=== PATIENT | male | born 1945 | race Caucasian/White ===

== ENCOUNTER 2020-03-26 16:55 | Inpatient (IN) | payer OTHER ==
[~2020-03-26] VITALS: Ht 188 cm; Wt 80.7 kg
[2020-03-26 18:19] LABS: ABSOLUTE NEUTROPHILS 8.5 thou/uL (1.4-8.2); BASOPHILS 0.8 % (0.0-2.0); EOSINOPHILS 0.4 % (0.0-3.0); HEMATOCRIT 32.5 % (42.0-52.0); LYMPHOCYTES 5.3 % (24.0-44.0); MCV 79.4 fL (80.0-100.0); MONOCYTES 5.4 % (1.0-8.0); PLATELET COUNT 227 thou/uL (150-400); POLYS 88.1 % (36.0-66.0); RBC 4.09 mil/uL (4.50-6.00); RDW 14.3 % (10.5-14.5); WBC 9.6 thou/uL (4.0-11.0)
[2020-03-26 18:26] LABS: ANION GAP 9 mmol/L (7-16); BUN 33 mg/dL (7-18); CALCIUM 8.5 mg/dL (8.5-10.1); CHLORIDE 96 mmol/L (98-107); CO2 24 mmol/L (21-32); CREATININE 1.4 mg/dL (0.7-1.3); GLUCOSE 153 mg/dL (74-106); POTASSIUM 3.7 mmol/L (3.5-5.1); SODIUM 129 mmol/L (136-145)
[2020-03-26 18:37] LABS: BE(vivo) -0.9 mmol/L (-2 to +3); HCO3 21.1 mmol/L (22.0-26.0); PO2 87.7 mmHg (80.0-100.0); sO2 97.5 % (92.0-98.0)
[2020-03-26 18:37] LABS: ALBUMIN 2.8 g/dL (3.4-5.0); SGOT 21 U/L (15-37); SGPT 11 U/L (16-63); TOTAL BILIRUBIN 0.7 mg/dL (0.2-1.0); TOTAL PROTEIN 6.4 g/dL (6.4-8.2); TROPONIN-I <0.06 ng/mL (<0.06)
[2020-03-27 05:51] LABS: HEMATOCRIT 34.3 % (42.0-52.0); HEMOGLOBIN 11.7 gm/dL (14.0-18.0); MCH 27.2 pg (26.0-34.0); MCV 80.1 fL (80.0-100.0); RBC 4.29 mil/uL (4.50-6.00); RDW 14.5 % (10.5-14.5); WBC 7.7 thou/uL (4.0-11.0)
[2020-03-27 06:18] LABS: CALCIUM 9.1 mg/dL (8.5-10.1); CREATININE 1.5 mg/dL (0.7-1.3)
[2020-03-27 06:23] LABS: POTASSIUM 4.8 mmol/L (3.5-5.1)
--- NOTE | 2020-03-27 07:45 | NUR ---
PT'S CALLS AND STATES THAT SHE WANTS TO COME GET HIM SINCE HE IS STILL IN THE ER AND WANTS TO KNOW IF HE WILL GET FED AND GET MEDS. PT'S UPDATED TO PLAN OF CARE AT THIS TIME. UPDATED THAT ALL MEDS THAT THE HOSPITALIST ORDERS WILL BE ADMIN IN THE ER AND THAT BREAKFAST USUALLY ARRIVES BETWEEN 0730 AND 0830. STATES THAT THE PT CALLED HER THIS MORNING UPSET AND SHE WANTS TO TAKE HIM TO ANOTHER HOSPITAL, ASSURED THAT WE ARE TAKING CARE OF HIM AND THAT ALL OTHER HOSPITALS MAY BE IN THE SAME SITUATION. PT'S PRIMARY NURSE UPDATED AT THIS TIME.
[2020-03-27] MEDS ORDERED: METFORMIN HCL500 M3 PO (08:28)
[2020-03-27] MEDS ORDERED: CARVEDILOL12.5 MG PO (08:29)
[2020-03-27] MEDS ORDERED: PRAVASTATIN SOD40 MG PO (08:29)
[2020-03-27] MEDS ORDERED: CARBIDOPA-LEVO1 EAC9 PO (08:29)
[2020-03-27] MEDS ORDERED: GLIMEPIRIDE4 MG PO (08:30)
[2020-03-27] MEDS ORDERED: HYDROCHLOROTHIA25 M2 PO (08:30)
[2020-03-27] MEDS ORDERED: ASA81BEC PO (08:31)
--- NOTE | 2020-03-27 14:18 | NUR ---
74-year-old male presenting to the ER with shortness of breath. States that he was diagnosed Covid POSITIVE on 03-19-20 but symptoms started on the . Patient reports doing well with mild cough, myalgias and fever. However became increasing SOA stating he can not walk more than 5- feet without feeling short of breath. He had been doing fairly well with only cough myalgias fever in the beginning however over the last few days he has been increasingly more short of breath. The patient has a history of previous stent placement for CAD. The patient was started on Zoysn and Decadron in the ED. Per ED record on 03-27-20 patient is on 3 liters per NC at 97%. Patient seen by ID and diagnosed with COVID-19 infection complicated by pneumonitis/Diabetes mellitus/hypertension. Patient to continue therapy against coronavirus as well as empiric therapy possible secondary bacterial complicating infection; as well as to continue supportive care with oxygen therapy as required. The patient has been assessed as A&O x4. The patient's spouse Pretty has called the ED and return number could not be verified. The original face sheet shows the patient's son Dave as next of kin and green party of notification however both numbers are not working. In looking through the record was able to find the spouse's number as [phone]. The patient's cell is [phone]. Introduced the role of CM and the intention of the spouse is for patient to be able to return home possibly with Home Health. The patient has not used DME, SNF or Home Health in the past. The spouse states she too tested positive on the and has been cleared to return to her employer of [employer] in [place] but has taken time off while her is hospitalized. The spouse states that patient was diagnosed with Parkinson's 4 years ago and is on 4 times a day Levodopa as well as Metformin BID. Notified attending and ED nurse. CM will follow for discharge needs.
[2020-03-27 19:12] VITALS: BP 144/65
[2020-03-27 19:33] VITALS: BP 131/57
[2020-03-27 20:16] VITALS: BP 145/68
[2020-03-27 21:00] VITALS: BP 145/68
[2020-03-27 23:30] VITALS: BP 133/88
[2020-03-28 04:23] VITALS: BP 138/75
[2020-03-28 06:26] LABS: ALBUMIN 2.5 g/dL (3.4-5.0); CALCIUM 8.2 mg/dL (8.5-10.1); CREATININE 1.3 mg/dL (0.7-1.3); DIRECT BILIRUBIN 0.1 mg/dL (<0.1-0.2); PHOSPHORUS 3.5 mg/dL (2.5-4.9); TOTAL BILIRUBIN 0.4 mg/dL (0.2-1.0); TOTAL PROTEIN 5.3 g/dL (6.4-8.2)
[2020-03-28 06:28] LABS: POTASSIUM 3.7 mmol/L (3.5-5.1)
--- NOTE | 2020-03-28 07:17 | EKG ---
[address] [place] [address] ELECTROCARDIOGRAM REPORT Name: MARITA DAVILA Room #: 355- ADM IN M.R.#: [id number] Admission: 03/26/20 Attend Phys: Goldy Walker MD Discharge: Date of : 41 Report #: [id number] [facility] ED Test Date: 2020-03-26 Test Time: 18:33:46 Pat Name: MARITA DAVILA Department: Room: [facility] Gender: M Speed Belt Sander Tender: RAMANDEEP : 1945 Requested By: Abbe Fong Order Number: [id number] MD: Kenneth Hendrickson Measurements Intervals [place] Rate: 88 P: [place]: QRS: 3 QRSD: 77 T: 8 QT: 342 QTc: 414 Interpretive Statements NSR Minimal ST depression, anterolateral leads Compared to ECG 07/17/2006 10:30:56 ST (T wave) deviation now present Sinus rhythm no longer present Poor R-wave progression no longer present Electronically Signed On 03-28-2020 7:17:35 CRATE ICER by Kenneth Hendrickson [email or web address] <ELECTRONICALLY SIGNED> By: Kenneth Hendrickson MD, [facility] 03/28/20 0717 32 32 Kenneth Hendrickson MD, [facility] /EPI
--- NOTE | 2020-03-28 08:00 | NUR ---
Arrived from ER around 1999. Placed on enhanced precaution , afebrile. Denies any pain. Maintaining O2 sat in the upper 90's on 2l/NC. Verbalized being short of breath with exertion. Up ad daphne in room with steady gait. Noted left hand tremors due to Parkinsons. Requested sleep med , RACKET STRINGER notified and order for melatonin obtained. Pt. stated he has not slept well in the last 3-4 days. After sleep med he said he slept some for few hours.
[2020-03-28 11:16] VITALS: BP 128/68
--- NOTE | 2020-03-28 11:29 | HC ---
[facility] [place] [address] CONSULTATION Name: MARITA DAVILA Room #: 355-P ADM IN M.R.#: [id number] Admission: 03/26/20 Attend Phys: Goldy Walker MD Discharge: Date of : 41 Report #: [id number] THIS REPORT FOR: cc: PIERO - Chelita family physician/PCP PIERO - Chelita family physician/PCP Cj eD Leon MD ~ DATE OF SERVICE: 03/27/2020 INFECTIOUS DISEASE CONSULTATION ATTENDING PHYSICIAN: Dr. Walker. REASON FOR EVALUATION: COVID-19 infection, complicated by pneumonitis. HISTORY OF SUBJECTIVE: Chart reviewed, the patient examined. This is a 74-year-old with history of diabetes mellitus, hypertension, who had loss of sense of taste and smell roughly 8-9 days ago. He was checked and was found to be COVID positive. Over the course of last 48-72 hours, noted some increasing dyspnea and associated cough. He did have some loose stools with diarrhea as well. The former progressed and became short of breath with minimal activity. It is unclear if he had significant fevers. He did admit to chills. He denied any anorexia. Due to the above, he did present himself to the Emergency Room. Chest x-ray noted diffuse bilateral interstitial airspace opacities. Lactic acid was in normal range at 1.8. He was hypoxemic with pO2 of 87.7 on 2 liters. Electrolytes: Sodium 129, his creatinine was 1.4. Blood cultures collected at the time of admission are sterile thus far. He was empirically started on therapy with Zosyn, remdesivir. He is generally lucid at this point. ALLERGIES: ASPIRIN. CURRENT MEDICATIONS: Include heparin, ascorbic acid, pantoprazole, zinc, Zosyn, methylprednisolone, p.r.n. analgesics, remdesivir. PAST MEDICAL HISTORY: Includes diabetes mellitus type 2, hypertension, coronary artery disease with stenting, previous lumbar discectomy, appendectomy, cholecystectomy. SOCIAL HISTORY: No ethanol or illicit drug use. Former smoker. FAMILY HISTORY: Noncontributory. REVIEW OF SYSTEMS: Otherwise, unremarkable. PHYSICAL EXAMINATION: GENERAL: Appears somewhat chronically ill and undernourished. He is pleasant, [facility] [address] [place] [address] CONSULTATION Name: MARITA DAVILA Room #: 355-P [facility].#: [id number] Admission: 03/26/20 Attend Phys: Goldy Walker MD Discharge: Date of : 41 Report #: [id number] in xvma-cb-sddmocoy distress. He is afebrile. VITAL SIGNS: Pulse 74, respirations 18, blood pressure 137/66. SKIN: Warm, dry, no rashes. HEENT: Normocephalic. Extraocular muscles intact. Nasal cannula in place. NECK: Supple. LUNGS: Bilateral scattered crackles at the bases. HEART: Regular, soft systolic murmur. ABDOMEN: Soft, nontender, nondistended. EXTREMITIES: No cyanosis. GENITOURINARY AND RECTAL: Deferred. LABORATORY DATA: Electrolytes: Sodium 134, potassium 4.8, chloride 98, bicarbonate is 24, anion gap of 12, BUN and creatinine 30 and 1.5, glucose is 399. Estimated GFR of 46. CBC: White count of 7.7, H and H of 11.7 and 34.3, platelets of 249, sed rate of 61. Procalcitonin is 0.17. Liver function tests are otherwise unremarkable. Albumin of 2.8, total protein of 6.4. ASSESSMENT: 1. COVID-19 infection, complicated by pneumonitis. 2. Diabetes mellitus. 3. Hypertension. PLAN: We will continue current therapy. Add ivermectin, additional vitamin supplementation. Continue supportive care with oxygen therapy as required. He remains fairly tenuous at this point. Continue to monitor. Would not be surprised if he gets worse before he gets better. <ELECTRONICALLY SIGNED> By: Cj De Leon MD 03/28/20 1129 1138 1306 Cj De Leon MD /nt
--- NOTE | 2020-03-28 14:30 | NUR ---
ALERT AND ORIENTED X4, DENIES ANY PAIN, NAUSEA AND VOMITTING. ON 2L OF OXYGEN, SOB WITH EXERTION. USES THE URINAL. UP WITH ONE ASSIST. DENIES ANY NEEDS. USES CALL LIGHT APPROPRIATELY. WILL CONTINUE TO MONITOR.
[2020-03-28 15:40] VITALS: BP 141/72
[2020-03-28 19:32] VITALS: BP 124/62
--- NOTE | 2020-03-29 00:20 | NUR ---
PT ALERT AND ORIENTED X4. VSS AFEBRILE. NO C/O PAIN. NO S/S RESP DISTRESS PRESENTLY. UNLABORED ON 2LNC. SLEEPING. BED DOWN. CALL LIGHT IN REACH. WILL CONTINUE TO MONITOR PT FOR CHANGES.
[2020-03-29 03:45] VITALS: BP 143/80
[2020-03-29 06:08] LABS: ALBUMIN 2.5 g/dL (3.4-5.0); ANION GAP 11 mmol/L (7-16); BUN 30 mg/dL (7-18); CHLORIDE 107 mmol/L (98-107); CO2 23 mmol/L (21-32); CREATININE 1.2 mg/dL (0.7-1.3); DIRECT BILIRUBIN < 0.1 mg/dL (<0.1-0.2); GLUCOSE 262 mg/dL (74-106); PHOSPHORUS 3.1 mg/dL (2.5-4.9); POTASSIUM 3.8 mmol/L (3.5-5.1); SGOT 20 U/L (15-37); SGPT 33 U/L (30-65); SODIUM 141 mmol/L (136-145); TOTAL BILIRUBIN 0.3 mg/dL (0.2-1.0); TOTAL PROTEIN 5.4 g/dL (6.4-8.2)
--- NOTE | 2020-03-29 06:19 | NUR ---
PT RESTING QUIELTLY SLEEPING. NO S/S DISTRESS. PROGRSSING TOWARDS D/C GOALS.
[2020-03-29 08:03] VITALS: BP 159/106
--- NOTE | 2020-03-29 10:49 | NUR ---
ASSESSMENT AND VITALS SIGNS COMPLETED. PT GETTING LAST REMDESVIR NOW. DISCHARGE TO HOME POSSIBLE BY NOON. PT DENIES ANY NEEDS, ON ROOM AIR, NO SIGNS OF DISTRESS NOTED.
--- NOTE | 2020-03-29 11:05 | NUR ---
CARE ASSUMED THIS MORNING, PT ALERT AND ORIENTED X4, DENIES ANY NAUSEA, VOMITTING AND PAIN. PT IS ON 1L OF OXYGEN, SOME SOB WITH EXERTION. NO SIGNS OF DISTRESS NOTED. PT UP AD ODALIS TO BATHROOM. Cathryn MCLAUGHLIN NOTIFIED ABOUT PT HIGH BLOOD GLUCOSE. DENIES ANY NEEDS BARNEY. PT IS PROGRESSING TOWARDS CARE. WILL CONTINUE TO MONITOR.
[2020-03-29 11:20] VITALS: BP 131/74
--- NOTE | 2020-03-29 14:24 | NUR ---
Spoke with patient over phone. Patient resides at home with . She works but plans to take time off to assist patient at home. All needs on one level. Independent with adls captain's assistant. he has Parkinsons, diagnosed 4 years ago. Patient uses a cane when in community if feels unsteady. All needs on one level in home. If patient needs home health at [place] he has no preference. PCP Dr Montalvo from [facility]. Verified address for home health. Patient currently on oxygen he did not use captain's assistant.
[2020-03-29 16:04] VITALS: BP 163/94
[2020-03-29 19:54] VITALS: BP 157/81
[2020-03-30] VITALS: BP 174/77
[2020-03-30 02:53] VITALS: BP 173/80
[2020-03-30 04:47] LABS: ALBUMIN 2.7 g/dL (3.4-5.0); DIRECT BILIRUBIN 0.1 mg/dL (<0.1-0.2); PHOSPHORUS 2.3 mg/dL (2.6-4.7); POTASSIUM 3.7 mmol/L (3.5-5.1); TOTAL BILIRUBIN 0.3 mg/dL (0.2-1.0); TOTAL PROTEIN 5.7 g/dL (6.4-8.2)
--- NOTE | 2020-03-30 05:37 | NUR ---
PROGRESS PT A/O X4 VERY FREQUENT COUGH BRINGING UP BLOOD TINGED SPUTUM. GUAFENISIN ORDERED AND GIVEN WITH EFFECT PT HAS A MORE EFFECTIVE COUGH THAT IS LESS FREQUENT. LUNGS SOUNDS CLEAR IN UPPER LOBES SOME COASE CRACKLES NOTED IN RLL AND DIMINISHED IN LLL. IV FLUIDS INFUSING ORDERED, ON 4 LITERS OF O2 SATS IN UPPER 90'S BUT PT STILL SOA WITH ACTIVITY. VOIDING QS.
[2020-03-30 07:22] VITALS: BP 163/85
[2020-03-30 11:05] VITALS: BP 175/94
[2020-03-30] MEDS ORDERED: LOSARTAN POTAS100 MG PO (11:33)
--- NOTE | 2020-03-30 13:51 | NUR ---
LICO reviewed chart and spoke with nursing and attending physician. Pt remains in Enhanced Isolation due to COVID. Pt is afebrile and on 2L of O2. Pt is on IV abx and IV steroids. Pt to complete course of Remdesivir tomorrow. Discharge home with HH and possible home O2 is planned for over the weekend. LICO spoke with pt via phone to provide update and discuss discharge plan. Pt is aware and agreeable with discharge plan and verbalized understanding of need for HH and possible home O2. Options provided. No preference voiced. mechanical planner to fax HH referral to [facility] and O2 referral to [facility]. Pt will need rest/exercise oximetry completed prior to discharge to determine home O2 needs. Finalized discharge orders/summary will need to be faxed when available. Pt's family will be able to provide transportation home when discharged. LICO is following to assist as needed with discharge planning. NEENA -- [facility]--
[2020-03-30 15:51] VITALS: BP 159/84
--- NOTE | 2020-03-30 18:00 | NUR ---
RN ASSUMED PT'S CARE AT 0700AM, PT IS A&OX3 , PT IS ON O2 2L/MIN/NC, PT HAS SOB WITH ACTIVITIES, PT IS ON COVID ISOLATION , PT IS CONTINUING IV ABX AND BS MANAGEMNET , PT GETS UP TO CHAIR BY HIMSELF, PT DENIES PAIN AT THIS TIME, PT'S VS ARE STABLE.
[2020-03-30 19:40] VITALS: BP 164/90
[2020-03-31 03:19] VITALS: BP 156/85
[2020-03-31 05:41] LABS: HEMATOCRIT 30.3 % (42.0-52.0); HEMOGLOBIN 10.2 gm/dL (14.0-18.0); MCH 27.1 pg (26.0-34.0); MCHC 33.6 g/dL (28.0-37.0); MCV 80.7 fL (80.0-100.0); RBC 3.76 mil/uL (4.50-6.00); RDW 14.3 % (10.5-14.5)
[2020-03-31 05:51] LABS: ALBUMIN 2.2 g/dL (3.4-5.0); ANION GAP 10 mmol/L (7-16); BUN 19 mg/dL (7-18); CALCIUM 7.9 mg/dL (8.5-10.1); CHLORIDE 105 mmol/L (98-107); CO2 24 mmol/L (21-32); DIRECT BILIRUBIN < 0.1 mg/dL (<0.1-0.2); GLUCOSE 118 mg/dL (74-106); PHOSPHORUS 2.3 mg/dL (2.6-4.7); POTASSIUM 3.9 mmol/L (3.5-5.1); SGOT 12 U/L (15-37); SGPT 15 U/L (16-63); SODIUM 139 mmol/L (136-145); TOTAL BILIRUBIN 0.3 mg/dL (0.2-1.0); TOTAL PROTEIN 5.2 g/dL (6.4-8.2)
--- NOTE | 2020-03-31 07:51 | NUR ---
PROGRESS PT A/O X4 UP AD ODALIS ON 2 LITERS O2 LUNG SOUNDS WITH SCATTERED CRACKLES BUT DEFINITELY EXPANDING MORE AND MORE AIR MOVEMENT NOTED, NO COUGH REPORTED PT RELAXED AND AT EASE TONIGHT EXPECTS TO DC HOME WITH O2 THATS WAS DELIVERED YESTERDAY.
[2020-03-31 08:22] VITALS: BP 159/87
[2020-03-31] MEDS ORDERED: VITAMIN D325 MC1 PO (12:31)
[2020-03-31] MEDS ORDERED: LEVOFLOXACIN500 MG PO (12:31)
[2020-03-31] MEDS ORDERED: VITAMIN B-1100 M2 PO (12:31)
[2020-03-31] MEDS ORDERED: ACEROLA C500 MG PO (12:31)
[2020-03-31] MEDS ORDERED: ZINC SULFATE 2220 MG PO (12:31)
[2020-03-31] MEDS ORDERED: ADULT TUSS100 MG/5 M PO (12:31)
[2020-03-31] MEDS ORDERED: ACETAMINOPHEN325 M1 PO (12:31)
[2020-03-31] MEDS ORDERED: PREDNISONE 20 M20 M1 PO (12:31)
[2020-03-31] MEDS ORDERED: MELATONIN5 M1 PO (12:31)
[2020-03-31 12:44] VITALS: BP 159/87
--- NOTE | 2020-03-31 13:20 | NUR ---
FAXED [facility] THE DISCHARGE ORDERS/SUMMARY TO [facility]. CONFIRMED THAT THEY RECEIVED AND CAN ACCEPT PATIENT AT TIME OF DISCHARGE. JOSE/KAMERON WAS NOTIFIED AND CONFIRMED WITH PATIENT THAT HIS PCP IS MANUELA CARRENO MD AT [phone]. NOTIFIED ADMITTING TO UPDATE FACE SHEET. [facility] P [phone]; FAX [phone]; [facility] [phone]
[2020-03-31 17:31] VITALS: BP 159/87
--- NOTE | 2020-03-31 18:32 | NUR ---
RN ASSUMED PT'S CARE AT 0700AM, PT IS A&OX3, PT IS ON O2 2L/MIN/NC, PT'S VS ARE STABLE, PT REMAINS IN ENHANCED ISOLATION, PT HAS FINISHED COURSE OF REMDESIVIR TODAY, PT'S SOB HAS IMPROVED, RN RECEIVED ORDER TO DC PT TO HOME WITH HOME HEALTH, SW HAS SET UP HOME HEALTH AND HOME O2, RN HAS GIVING PT AND PT'S ( ON PHONE ) DC TEACHING , THEY UNDEDSTANDER WELL , [facility] CAN SENT PT TO ER BY W/C, PT'S GIN OPERATOR PT AT ER.PT IS HAPPY WITH CARE AT [facility] .
[2020-04-02] MEDS ORDERED: LEVOFLOXACIN750 MG PO (10:14)
[2020-04-02] MEDS ORDERED: MUCINEX600 MG PO (10:14)
== END 2020-03-31 17:50 | disposition home health service (06) | DRG 871 ==
LOC: ER 16:55 → 3W 22:21 → EROBS 22:21 → 3W 03-27 19:41
PROVIDERS: Nurse Practitioner Family; Physician Assistant; Specialist; ADMIT Internal Medicine; ATTEND Internal Medicine
PROC: XW033E5 Introduction of Remdesivir Anti-infective into Peripheral Vein, Percutaneous Approach, New Technology Group 5 (ICD-10-PCS; principal; 2020-03-27)
DX: A41.89 Other specified sepsis (principal); U07.1 COVID-19; J96.01 Acute respiratory failure with hypoxia; J12.82 Pneumonia due to coronavirus disease 2019; N17.9 Acute kidney failure, unspecified; E87.1 Hypo-osmolality and hyponatremia; I25.10 Atherosclerotic heart disease of native coronary artery without angina pectoris; I10 Essential (primary) hypertension; G20 Parkinson's disease; R53.81 Other malaise; E11.9 Type 2 diabetes mellitus without complications; Z90.49 Acquired absence of other specified parts of digestive tract; Z88.8 Allergy status to other drugs, medicaments and biological substances; Z79.899 Other long term (current) drug therapy; Z87.891 Personal history of nicotine dependence
CPT/HCPCS: 10879

== ENCOUNTER 2020-10-07 08:28 | Inpatient (IN) | payer OTHER ==
[~2020-10-07] VITALS: Ht 188 cm; Wt 76.9 kg
[~2020-10-07 08:28] MED LIST: ACEROLA C500 MG PO; ACETAMINOPHEN325 M1 PO; ADULT TUSS100 MG/5 M PO; ASA81BEC PO; CARBIDOPA-LEVO1 EAC9 PO; CARVEDILOL12.5 MG PO; GLIMEPIRIDE4 MG PO; HYDROCHLOROTHIA25 M2 PO; LEVOFLOXACIN500 MG PO; LEVOFLOXACIN750 MG PO; LOSARTAN POTAS100 MG PO; MELATONIN5 M1 PO; METFORMIN HCL500 M3 PO; MUCINEX600 MG PO; PRAVASTATIN SOD40 MG PO; PREDNISONE 20 M20 M1 PO; VITAMIN B-1100 M2 PO; VITAMIN D325 MC1 PO; ZINC SULFATE 2220 MG PO
[2020-10-07 08:34] VITALS: BP 140/68
[2020-10-07 08:59] LABS: ABSOLUTE NEUTROPHILS 4.6 thou/uL (1.4-8.2); EOSINOPHILS 6.7 % (0.0-3.0); HEMATOCRIT 36.8 % (42.0-52.0); HEMOGLOBIN 12.4 gm/dL (14.0-18.0); LYMPHOCYTES 17.5 % (24.0-44.0); MCHC 33.7 g/dL (28.0-37.0); MCV 80.2 fL (80.0-100.0); MONOCYTES 6.8 % (1.0-8.0); PLATELET COUNT 173 thou/uL (150-400); RBC 4.58 mil/uL (4.50-6.00); RDW 14.9 % (10.5-14.5); WBC 6.7 thou/uL (4.0-11.0)
[2020-10-07 09:21] LABS: ALBUMIN 3.7 g/dL (3.4-5.0); ANION GAP 8 mmol/L (7-16); BUN 19 mg/dL (7-18); CALCIUM 8.8 mg/dL (8.5-10.1); CHLORIDE 99 mmol/L (98-107); CO2 27 mmol/L (21-32); CREATININE 1.2 mg/dL (0.7-1.3); GLUCOSE 272 mg/dL (74-106); POTASSIUM 4.5 mmol/L (3.5-5.1); SGOT 22 U/L (15-37); SGPT 28 U/L (16-63); SODIUM 134 mmol/L (136-145); TOTAL BILIRUBIN 0.4 mg/dL (0.2-1.0); TROPONIN-I <0.06 ng/mL (<0.06)
[2020-10-07 12:19] LABS: CHOLESTEROL 115 mg/dL (<200); HDL CHOLESTEROL 53 mg/dL (>40); LDL CHOLESTEROL 46 mg/dL (<100); TC:HDL 2.2 Ratio (Not establshd); TRIGLYCERIDE 82 mg/dL (<150); VLDL 16 mg/dL (<40)
--- NOTE | 2020-10-07 12:26 | EKG ---
[address] [address] ELECTROCARDIOGRAM REPORT Name: MARITA DAVILA Room #: 170-4 ADM IN M.R.#: [id number] Admission: 10/07/20 Attend Phys: Angelita Choudhury Discharge: Date of : 41 Report #: [id number] [facility] ED Test Date: 2020-10-07 Test Time: 08:56:14 Pat Name: MARITA DAVILA Department: Room: 170 Gender: M Route Driver: MARCIN : 1945 Requested By: Eliane Eric Order Number: [id number] MD: Carlos Bui Measurements Intervals [place] Rate: 75 P: [place]: QRS: -16 QRSD: 101 T: -9 QT: 389 QTc: 435 Interpretive Statements Atrial fibrillation Left ventricular hypertrophy Borderline T abnormalities, inferior leads Compared to ECG 03/26/2020 18:33:46 ST (T wave) deviation no longer present Electronically Signed On 10-07-2020 12:26:15 CDT by Carlos Bui [email or web address] <ELECTRONICALLY SIGNED> By: Carlos Bui MD 10/07/20 1226 5 MD JOSUE Dela Cruz
[2020-10-07 16:48] VITALS: BP 182/96
--- NOTE | 2020-10-07 17:09 | NUR ---
assumed care of pt on arrival to unit at approx 1630. pt aox4 no acute distress. complains of headache. hypertensive - physician notified - instructed to give daily losartan dose now. ambulates to bathroom indepedently with walker. sinus on telemetry. calls out appropriately.
[2020-10-07 20:00] VITALS: BP 173/89
[2020-10-07 23:42] VITALS: BP 160/95
[2020-10-08 05:49] VITALS: BP 146/89
[2020-10-08 08:12] VITALS: BP 165/93
--- NOTE | 2020-10-08 08:21 | NUR ---
SLEPT MOST OF SHIFT. UP AD ODALIS IN ROOM WITH STEADY GAIT. NPO FOR AM STRESS TEST. CONTINUE TO ASSES.
[2020-10-08 08:42] VITALS: BP 147/87
--- NOTE | 2020-10-08 11:08 | EKG ---
[address] [address] ELECTROCARDIOGRAM REPORT Name: MARITA DAVILA Room #: 208-P ADM IN M.R.#: [id number] Admission: 10/07/20 Attend Phys: Angelita Choudhury Discharge: Date of : 41 Report #: [id number] [facility] ED Test Date: 2020-10-07 Test Time: 10:42:19 Pat Name: MARITA DAVILA Department: Room: 208 P Gender: M Guyline Operator: JCHAISHEFALI : 1945 Requested By: Angelita Choudhury Order Number: [id number] MD: Kenneth Hendrickson Measurements Intervals [place] Rate: 73 P: 26 MI: 199 QRS: -3 QRSD: 102 T: 20 QT: 396 QTc: 437 Interpretive Statements Sinus rhythm Abnormal R-wave progression, early transition Compared to ECG 10/07/2020 08:56:14 Atrial fibrillation no longer present Left ventricular hypertrophy no longer present T-wave abnormality no longer present Electronically Signed On 10-08-2020 11:07:52 CDT by Kenneth Hendrickson [email or web address] <ELECTRONICALLY SIGNED> By: Kenneth Hendrickson MD, [facility] 10/08/20 1107 1042 1042 Kenneth Hendrickson MD, [facility] /EPI
[2020-10-08 12:30] VITALS: BP 147/84
[2020-10-08 17:04] VITALS: BP 147/84
--- NOTE | 2020-10-08 17:40 | NUR ---
Patient discharge teaching done at bedside with patient and . No questions and concerns at time of teaching. Tele and IV removed. Taken out by wheelchair to private vehicle by staff.
== END 2020-10-08 18:20 | disposition home or self-care (01) | DRG 303 ==
LOC: ER 08:28 → EROBS 11:53 → 2N 11:53
PROVIDERS: Emergency Medicine; ADMIT Hospitalist; ATTEND Hospitalist
DX: I25.10 Atherosclerotic heart disease of native coronary artery without angina pectoris (principal); R06.00 Dyspnea, unspecified; E11.9 Type 2 diabetes mellitus without complications; I10 Essential (primary) hypertension; E78.00 Pure hypercholesterolemia, unspecified; G20 Parkinson's disease; G47.00 Insomnia, unspecified; N40.0 Benign prostatic hyperplasia without lower urinary tract symptoms; R63.4 Abnormal weight loss; Z20.822 Contact with and (suspected) exposure to COVID-19; Z90.49 Acquired absence of other specified parts of digestive tract; Z79.899 Other long term (current) drug therapy; Z68.21 Body mass index [BMI] 21.0-21.9, adult; Z79.84 Long term (current) use of oral hypoglycemic drugs; Z95.5 Presence of coronary angioplasty implant and graft
CPT/HCPCS: 10081